=== PATIENT | female | born 1970 | race Caucasian/White ===

== ENCOUNTER 2016-11-09 20:07 | Emergency (ER) | payer OTHER ==
[~2016-11-09 20:07] MED LIST: BUPR300T3 PO; CLON0.2T PO; ESTR1PAT67 TD; NAPR500T PO; OXYC-323 PO; PROG200C7 PO
[2016-11-09 20:33] VITALS: BP 154/89
[2016-11-09] MEDS ORDERED: HYDROCODONE/APAP 5/325MG TABLET. PO ONE (21:45)
[2016-11-09] MEDS ORDERED: CYCLOBENZAPRINE 10 MG TABLET. PO ONE (21:45)
[2016-11-09] MEDS ORDERED: CYCL10TA2 PO (22:02)
[2016-11-09] MEDS ORDERED: HYDR-971 PO (22:02)
[2016-11-09] MEDS ORDERED: NAPR500T8 PO (22:02)
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
--- NOTE | 2016-11-10 08:24 | RAD ---
PA and lateral chest radiographs 11/09/2016 Clinical history: Chest pain. PA and lateral digital radiographs of the chest were obtained. Comparison study is dated 02/10/2016. The cardiac silhouette is borderline enlarged. The thoracic aorta is minimally tortuous. No acute pulmonary infiltrate is seen. No pleural effusion or pneumothorax is noted. Degenerative changes are seen involving the thoracic spine. Impression: No acute abnormality is seen.
== END 2016-11-09 22:07 | disposition home or self-care (01) ==
LOC: ER 20:07
DX: S80.01XA Contusion of right knee, initial encounter (principal); S20.211A Contusion of right front wall of thorax, initial encounter; S80.11XA Contusion of right lower leg, initial encounter; M25.511 Pain in right shoulder; M25.512 Pain in left shoulder; M25.531 Pain in right wrist; I10 Essential (primary) hypertension; V49.40XA Driver injured in collision with unspecified motor vehicles in traffic accident, initial encounter; Y93.I9 Activity, other involving external motion; Y92.410 Unspecified street and highway as the place of occurrence of the external cause; Y99.8 Other external cause status
CPT/HCPCS: 71020; 99284-25

== ENCOUNTER → 2016-12-26 | Outpatient (CLI) | payer OTHER ==
[~2016-12-26] MED LIST changes: +CYCL10TA2 PO; +HYDR-971 PO; +NAPR500T8 PO
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
== END | disposition home or self-care (01) ==
LOC: RAD 14:49
PROVIDERS: ATTEND Family Medicine
DX: M25.762 Osteophyte, left knee (principal)
CPT/HCPCS: 73562

== ENCOUNTER 2017-03-03 11:04 | Emergency (ER) | payer OTHER ==
[~2017-03-03] VITALS: Ht 167.6 cm; Wt 133.8 kg
[~2017-03-03 11:04] MED LIST changes: +PROG200C15 PO; -PROG200C7 PO
[2017-03-03 11:13] VITALS: BP 139/85
[2017-03-03] MEDS ORDERED: AMOX500C PO (11:46)
--- NOTE | 2017-03-03 11:47 | PHYS DOC ---
Past Medical History Past Medical History: Hypertension Past Surgical History: Hysterectomy, Tubal ligation Alcohol Use: None Drug Use: None Adult General Chief Complaint Chief Complaint: COUGH HPI HPI Patient is a 46 year old female presents to the emergency department stating that she has had a cough congestion for the last 5 days. Patient also states that she's had a sore throat in which she has lost her voice yesterday. Patient states that she has tried warm teas with minimal relief. She denies recent fevers however she did state she had a fever that are broken in at the beginning of the symptoms. Patient denies any nausea vomiting. Patient states that she has coughed up some little yellow secretions. Patient also states that she has been exposed to strep. Review of Systems Review of Systems Constitutional: Denies fever or chills [] Eyes: Denies change in visual acuity, redness, or eye pain [] HENT: Denies nasal congestion complaint sore throat [] Respiratory: cough denies shortness of breath [] Cardiovascular: No additional information not addressed in HPI [] GI: Denies abdominal pain, nausea, vomiting, bloody stools or diarrhea [] : Denies dysuria or hematuria [] Musculoskeletal: Denies back pain or joint pain [] Integument: Denies rash or skin lesions [] Neurologic: Denies headache, focal weakness or sensory changes [] Endocrine: Denies polyuria or polydipsia [] Allergies Allergies Allergies Coded Allergies Type Severity Reaction Last Updated Verified No Known Drug Allergies 02/08/16 No Physical Exam Physical Exam Constitutional: Well developed, well nourished, no acute distress, non-toxic appearance. [] HENT: Normocephalic, atraumatic, bilateral external ears normal, oropharynx moist, no oral exudates, nose normal. Bilateral tympanic membranes appear to be normal. Throat with no redness no erythematous no exudate noted. Eyes: PERRLA, EOMI, conjunctiva normal, no discharge. [] Neck: Normal range of motion, no tenderness, supple, no stridor. [] Cardiovascular:Heart rate regular rhythm, no murmur [] Lungs & Thorax: Bilateral breath sounds clear to auscultation [] Skin: Warm, dry, no erythema, no rash. [] Back: No tenderness Extremities: No tenderness, no cyanosis, no clubbing, ROM intact, no edema. [] Neurologic: Alert and oriented X 3, normal motor function, normal sensory function, no focal deficits noted. [] Psychologic: Affect normal, judgement normal, mood normal. [] Current Patient Data Vital Signs Vital Signs Date Time Temp Pulse Resp B/P (MAP) Pulse Ox O2 Delivery O2 Flow Rate FiO2 03/03/17 11:13 98.2 90 20 96 Room Air 98.2 EKG EKG [] Radiology/Procedures Radiology/Procedures [] Course & Med Decision Making Course & Med Decision Making Pertinent Labs and Imaging studies reviewed. (See chart for details) Rapid strep was negative. Patient will be placed on amoxicillin 500 mg twice day for the next 10 days. Recommended patient to drink plenty of fluids such as water Gatorade or propel. Recommended Tylenol or ibuprofen for fever chills or generalized body aches and discomfort. Patient will be discharged home in stable condition. Signs and symptoms to return back to emergency department as been provided. Patient had all of her questions answered at bedside. [] Dragon Disclaimer Dragon Disclaimer This electronic medical record was generated, in whole or in part, using a voice recognition dictation system. Departure Departure Impression: Primary Impression: URI (upper respiratory infection) Disposition: 01 HOME, SELF-CARE Condition: STABLE Referrals: AIDA GONZALEZ MD (PCP) Patient Instructions: Upper Respiratory Infection, Adult, [id number] Additional Instructions: Activity as tolerated. Medication as prescribed. Tylenol or ibuprofen for pain and discomfort. Drink plenty of fluids such as water Gatorade or propel. Follow-up to primary care physician in the next 3-5 days. Return back to emergency prior signs symptoms of become worse. Scripts Amoxicillin (AMOXICILLIN) 500 Mg Capsule 1 CAP PO BID, #20 CAP Prov: RAMESH IQBAL TILE AND MARBLE SETTER 03/03/17 RAMESH IQBAL TI[employer] AND MARBLE SETTER Mar 03, 2017 11:47
[2017-03-03 12:08] LABS: NEGATIVE OBC STREP NEG; POSITIVE OBC STREP POS
== END 2017-03-03 12:05 | disposition home or self-care (01) ==
LOC: ER 11:04
DX: J06.9 Acute upper respiratory infection, unspecified (principal); I10 Essential (primary) hypertension; Z90.710 Acquired absence of both cervix and uterus
CPT/HCPCS: 87070; 87880; 99283

== ENCOUNTER 2017-09-03 15:01 | Emergency (ER) | payer OTHER ==
[2017-09-03 16:51] LABS: BILIRUBIN,URINE SMALL (NEG); CLARITY,URINE CLEAR; COLOR,URINE AMBER; GLUCOSE,URINE NEGATIVE (NEG); NITRITE,URINE NEGATIVE (NEG); PH,URINE 5.5; PROTEIN,URINE 30 mg/dL (NEG-TRACE)
[2017-09-03 17:08] LABS: BACTERIA,URINE FEW /HPF (0-FEW); RBC,URINE 0 /HPF (0-2); SQUAMOUS EPITHELIAL CELL,UR MOD /LPF
[2017-09-03] MEDS: IV NORMAL SALINE 1000ML BAG 1,000 ML IV (17:14)
[2017-09-03] MEDS: ONDANSETRON PF 4 MG/2 ML VIAL. IV (17:14)
[2017-09-03] MEDS: fentaNYL PF VIAL 100 MCG/2 ML VIAL IV (17:14)
[2017-09-03] MEDS: PENICILLIN G BENZATHINE LA 1,200,000 UNIT/2 ML DISP.SYRIN. IM (17:15)
[2017-09-03 17:22] LABS: INFLUENZA A PATIENT NEGATIVE (NEGATIVE); INFLUENZA B PATIENT NEGATIVE (NEGATIVE); OBC FLU VALID
[2017-09-03 17:25] LABS: ANION GAP 10 (6-14); BLOOD UREA NITROGEN 13 mg/dL (7-20); BUN/CREATININE RATIO 22 (6-20); CALCIUM 8.7 mg/dL (8.5-10.1); CARBON DIOXIDE 27 mmol/L (21-32); CHLORIDE 99 mmol/L (98-107); CREATININE 0.6 mg/dL (0.6-1.0); GFR 106.3; GLUCOSE 116 mg/dL (70-99); POTASSIUM 3.4 mmol/L (3.5-5.1); SODIUM 136 mmol/L (136-145)
[2017-09-03 17:31] LABS: ALBUMIN 3.4 g/dL (3.4-5.0); ALBUMIN/GLOBULIN RATIO 0.6 (1.0-1.7); ALK PHOS 115 U/L (46-116); ALT (SGPT) 17 U/L (14-59); AST (SGOT) 23 U/L (15-37); TOTAL BILIRUBIN 0.7 mg/dL (0.2-1.0); TOTAL PROTEIN 8.7 g/dL (6.4-8.2)
[2017-09-03 17:35] LABS: ADD MAN DIFF? NO
[2017-09-03 17:36] LABS: TROPONINI < 0.017 ng/mL (0.000-0.055)
[2017-09-03 17:37] LABS: BASO % 0 % (0-3); EOS % 0 % (0-3); HEMATOCRIT 35.7 % (36.0-47.0); HEMOGLOBIN 11.8 g/dL (12.0-15.5); LYMPH # 2.3 x10^3/uL (1.0-4.8); LYMPH % 17 % (24-48); MEAN CORPUSCULAR HEMOGLOBIN 26 pg (25-35); MEAN CORPUSCULAR HGB CONC 33 g/dL (31-37); MEAN CORPUSCULAR VOLUME 80 fL (79-100); MONO # 0.8 x10^3/uL (0.0-1.1); MONO % 6 % (0-9); NEUT % 77 % (31-73); PLATELET COUNT 217 x10^3/uL (140-400); RED BLOOD COUNT 4.46 x10^6/uL (3.50-5.40); RED CELL DISTRIBUTION WIDTH 13.9 % (11.5-14.5); WHITE BLOOD COUNT 13.1 x10^3/uL (4.0-11.0)
[2017-09-03 17:54] LABS: CKMB MASS < 0.5 ng/mL (0.0-3.6); CREATINE KINASE 76 U/L (26-192)
[2017-09-04 06:39] LABS: NEGATIVE OBC STREP NEG; POSITIVE OBC STREP POS
== END 2017-09-03 15:35 | disposition home or self-care (01) ==
LOC: ER 15:01
DX: J02.0 Streptococcal pharyngitis (principal); I10 Essential (primary) hypertension; F32.9 Major depressive disorder, single episode, unspecified
CPT/HCPCS: 36415; 71045; 80053; 81001; 82553; 84484; 85025; 87804; 87804-59; 87880; 96361; 96372; 96374; 96375; 99285-25; J0561; J2405; J3010; J7030

== ENCOUNTER 2018-11-02 13:07 | Emergency (ER) | payer OTHER ==
[~2018-11-02] VITALS: Ht 167.6 cm; Wt 131.1 kg
[~2018-11-02 13:07] MED LIST changes: +AMOX500C PO; +HYDR-3164 PO; -HYDR-971 PO; +IBUP-1007 PO; +NAPR-683 PO; -NAPR500T PO; -OXYC-323 PO; +OXYC1TAB15 PO
[2018-11-02 13:15] VITALS: BP 166/84
--- NOTE | 2018-11-02 13:29 | PHYS DOC ---
Past Medical History Past Medical History: Depression, Hypertension Past Surgical History: Hysterectomy, Tubal ligation Alcohol Use: None Drug Use: None Adult General Chief Complaint Chief Complaint: PAIN ON URINATION HPI HPI Patient is a 48 year old female who presents with feeling of urinary frequency. Patient states she passed a kidney stone spontaneously 5 days ago and started to have urinary frequency for the last 5 days without abdominal pain , nausea vomiting, dysuria, fever and chills. Patient states she had hematuria since this morning. Review of Systems Review of Systems Constitutional: Denies fever or chills [] Eyes: Denies change in visual acuity, redness, or eye pain [] HENT: Denies nasal congestion or sore throat [] Respiratory: Denies cough or shortness of breath [] Cardiovascular: No additional information not addressed in HPI [] GI: Denies abdominal pain, nausea, vomiting, bloody stools or diarrhea [] : Reports frequency and hematuria [] Musculoskeletal: Denies back pain or joint pain [] Integument: Denies rash or skin lesions [] Neurologic: Denies headache, focal weakness or sensory changes [] Endocrine: Denies polyuria or polydipsia [] All other systems were reviewed and found to be within normal limits, except as documented in this note. Current Medications Current Medications Current Medications Medications (Trade) Dose Ordered Sig/Andreea Start Time Stop Time Status Last Admin Dose Admin Ceftriaxone Sodium (Rocephin Im) 1 gm 1X ONCE 11/02/18 14:30 11/02/18 14:31 DC 11/02/18 14:30 1 GM Allergies Allergies Allergies Coded Allergies Type Severity Reaction Last Updated Verified No Known Drug Allergies 02/08/16 No Physical Exam Physical Exam Constitutional: Well developed, well nourished, mild distress, non-toxic appearance. [] HENT: Normocephalic, atraumatic. Eyes: PERRLA, EOMI, conjunctiva normal, no discharge. [] Neck: Normal range of motion, no tenderness, supple, no stridor. [] Cardiovascular:Heart rate regular rhythm, no murmur [] Lungs & Thorax: Bilateral breath sounds clear to auscultation [] Abdomen: Bowel sounds normal, soft, no tenderness, no masses, no pulsatile masses. [] Skin: Warm, dry, no erythema, no rash. [] Back: No tenderness, no CVA tenderness. [] Extremities: No tenderness, no cyanosis, no clubbing, ROM intact, no edema. [] Neurologic: Alert and oriented X 3, normal motor function, normal sensory function, no focal deficits noted. [] Psychologic: Affect normal, judgement normal, mood normal. [] Current Patient Data Vital Signs Vital Signs Date Time Temp Pulse Resp B/P (MAP) Pulse Ox O2 Delivery O2 Flow Rate FiO2 11/02/18 13:15 97.8 79 18 166/84 (111) 96 Room Air 97.8 Lab Values Laboratory Tests Test 11/02/18 13:16 Urine Collection Type Unknown Urine Color Yellow Urine Clarity Cloudy Urine pH 5.5 Urine Specific [place] 1.015 Urine Protein 100 mg/dL (NEG-TRACE) Urine Glucose (UA) Negative mg/dL (NEG) Urine Ketones (Stick) Negative mg/dL (NEG) Urine Blood Large (NEG) Urine Nitrite Positive (NEG) Urine Bilirubin Negative (NEG) Urine Urobilinogen Dipstick 0.2 mg/dL (0.2 mg/dL) Urine Leukocyte Esterase Large (NEG) Urine RBC Tntc /HPF (0-2) Urine WBC Tntc /HPF (0-4) Urine Bacteria 0 /HPF (0-FEW) EKG EKG [] Radiology/Procedures Radiology/Procedures [] Course & Med Decision Making Course & Med Decision Making Pertinent Labs reviewed. (See chart for details) Evaluation of patient in ER showed 48-year-old female patient with history of recent passing kidney stone presented with urinary frequency. Patient had unremarkable exam. UA showed too numerous to count WBC and RBC and positive nitrate. Patient agreed to have IM Rocephin in ER and prescription for Cipro was given. Patient did not have pain at arrival to ER and at time of discharge. Dragon Disclaimer Dragon Disclaimer This electronic medical record was generated, in whole or in part, using a voice recognition dictation system. Departure Departure Impression: Primary Impression: Acute hemorrhagic cystitis Disposition: 01 HOME, SELF-CARE (@1430) Condition: STABLE Referrals: AIDA GONZALEZ MD (PCP) Patient Instructions: Urinary Tract Infection Additional Instructions: Drink plenty of liquids Follow-up with your primary care physician in 3-5 days Return to ER if not getting better Scripts Ciprofloxacin Hcl (CIPRO) 250 Mg Tablet 1 TAB PO BID for infection, #14 TAB Prov: GALEN GARDNER MD 11/02/18 GALEN GARDNER MD Nov 02, 2018 13:29
[2018-11-02 13:39] LABS: BILIRUBIN,URINE NEGATIVE (NEG); CLARITY,URINE CLOUDY; COLOR,URINE YELLOW; NITRITE,URINE POSITIVE (NEG); PH,URINE 5.5; PROTEIN,URINE 100 mg/dL (NEG-TRACE); UROBILINOGEN,URINE 0.2 mg/dL (0.2 mg/dL)
[2018-11-02 13:52] LABS: BACTERIA,URINE 0 /HPF (0-FEW); RBC,URINE TNTC /HPF (0-2); WBC,URINE TNTC /HPF (0-4)
[2018-11-02] MEDS ORDERED: CIPR250T30 PO (14:22)
[2018-11-02] MEDS ORDERED: cefTRIAXone IM 1 GM VIAL IM ONE (14:30)
== END 2018-11-02 14:30 | disposition home or self-care (01) ==
LOC: ER 13:07
DX: N30.01 Acute cystitis with hematuria (principal); I10 Essential (primary) hypertension; F32.9 Major depressive disorder, single episode, unspecified; Z90.710 Acquired absence of both cervix and uterus; Z98.51 Tubal ligation status
CPT/HCPCS: 81001; 87086; 96372; 99284; J0696; 87186

== ENCOUNTER → 2019-04-27 | Outpatient (CLI) | payer OTHER ==
[~2019-04-27] MED LIST changes: +CIPR250T30 PO
[2019-04-27 13:38] LABS: BASO # 0.1 x10^3/uL (0.0-0.2); BASO % 1 % (0-3); EOS # 0.2 x10^3/uL (0.0-0.7); EOS % 2 % (0-3); HEMATOCRIT 38.3 % (36.0-47.0); HEMOGLOBIN 12.9 g/dL (12.0-15.5); LYMPH % 35 % (24-48); MEAN CORPUSCULAR HEMOGLOBIN 27 pg (25-35); MEAN CORPUSCULAR HGB CONC 34 g/dL (31-37); MEAN CORPUSCULAR VOLUME 81 fL (79-100); MONO # 0.4 x10^3/uL (0.0-1.1); MONO % 4 % (0-9); NEUT % 58 % (31-73); PLATELET COUNT 285 x10^3/uL (140-400); RED BLOOD COUNT 4.71 x10^6/uL (3.50-5.40); RED CELL DISTRIBUTION WIDTH 13.8 % (11.5-14.5); WHITE BLOOD COUNT 8.6 x10^3/uL (4.0-11.0)
[2019-04-27 14:09] LABS: ALBUMIN 3.5 g/dL (3.4-5.0); ALBUMIN/GLOBULIN RATIO 0.7 (1.0-1.7); CALCIUM 8.9 mg/dL (8.5-10.1); CREATININE 0.7 mg/dL (0.6-1.0); GFR 88.2; POTASSIUM 4.3 mmol/L (3.5-5.1); TOTAL BILIRUBIN 0.3 mg/dL (0.2-1.0); TOTAL PROTEIN 8.4 g/dL (6.4-8.2)
[2019-04-27 14:15] LABS: CHOLESTEROL/HDL RATIO 4.2
== END | disposition home or self-care (01) ==
LOC: LAB 13:14
PROVIDERS: ATTEND Family Medicine
DX: Z13.220 Encounter for screening for lipoid disorders (principal); I10 Essential (primary) hypertension; R07.9 Chest pain, unspecified
CPT/HCPCS: 36415; 80053; 80061; 84443; 85025

== ENCOUNTER → 2019-05-11 | Outpatient (CLI) | payer OTHER ==
--- NOTE | 2019-05-11 06:36 | RAD ---
Indication:Abdominal pain. TECHNIQUE: Grayscale, color Doppler and spectral waveform is of the abdomen obtained. COMPARISON:None FINDINGS: Pancreas within normal limits. Patent IVC. No aortic aneurysm. Liver is mildly enlarged measuring 19 cm in longest dimension with diffuse increased echogenicity and decreased through transmission. Main portal vein is patent. Gallstones noted. No pericholecystic fluid or gallbladder wall thickening. CBD measures 6 mm in diameter and is mildly dilated. Right kidney measures 13.5 cm in length without hydronephrosis. Spleen is mildly enlarged measuring 14 cm in longest dimension. Left kidney measures 12.8 cm in length without hydronephrosis. IMPRESSION: 1. Mild hepatosplenomegaly with hepatic steatosis. 2. Cholelithiasis without imaging evidence of acute cholecystitis. If concern for acute cholecystitis persists further evaluation with HIDA scan recommended. 3. Minimally dilated CBD. If there is concern for choledocholithiasis further evaluation with MRCP recommended. Electronically signed by: Rodolfo Foss DO (05/11/2019 6:33 AM) [facility]
--- NOTE | 2019-05-11 13:24 | RAD ---
DATE: 05/11/2019. EXAM: MAMMO BA SCREENING BILATERAL. HISTORY: Routine mammographic screening. COMPARISON: 01/02/2016. This study was interpreted with the benefit of Computerized Aided Detection (CAD). FINDINGS: Breast Density: SCATTERED The breast parenchyma shows scattered fibroglandular densities. Breast parenchyma level B.. Circumscribed nodules bilaterally are stable and benign. Scattered calcifications are stable. There are no suspicious masses, microcalcifications or architectural distortion. BI-RADS CATEGORY: 2 BENIGN FINDING(S). RECOMMENDED FOLLOW-UP: 12M 12 MONTH FOLLOW-UP. PQRS compliance statement: Patient information was entered into a reminder system with a target due date 05/11/2020 for the next mammogram. Mammography is a sensitive method for finding small breast cancers, but it does not detect them all and is not a substitute for careful clinical examination. A negative mammogram does not negate a clinically suspicious finding and should not result in delay in biopsying a clinically suspicious abnormality. "Our facility is accredited by the [employer] Mammography Program."
== END | disposition home or self-care (01) ==
LOC: US 05:57
PROVIDERS: ATTEND Family Medicine
DX: Z12.31 Encounter for screening mammogram for malignant neoplasm of breast (principal); N63.10 Unspecified lump in the right breast, unspecified quadrant; N63.20 Unspecified lump in the left breast, unspecified quadrant; K76.0 Fatty (change of) liver, not elsewhere classified; K80.20 Calculus of gallbladder without cholecystitis without obstruction; R16.2 Hepatomegaly with splenomegaly, not elsewhere classified
CPT/HCPCS: 76700; 77063; 77067

== ENCOUNTER → 2019-05-18 | Outpatient (CLI) | payer OTHER ==
--- NOTE | 2019-05-19 12:00 | RAD ---
MR#: [id number] Date of Study: 05/19/2019 Ordering Physician: THAI PIZARRO Referring Physician: HAMILTON LUCAS Tech: RT Belen (R) (N) APPROVED REPORT Test Type: Pharmacological Stress Nurse/Tech: Adriana Archer RN Test Indications: chest pain, SOB, palpitations Cardiac History: HTN,, See Electronic Medical Record Medications: See Electronic Medical Record Medical History: See Electronic Medical Record Resting ECG: SR Resting Heart Rate: 77 bpm Resting Blood Pressure: 133/63mmHg Pretest Chest Pain: No chest pain Nurse/Tech Notes S1S2, lungs CTA, pt denied CP or SOB at this time. Consent: The procedure was explained to the patient in lay terms. Informed consent was witnessed. Malik eout was entered into [employer]. History and Stress Test performed by SAJAN Almanzar Pharm. Details Pharmacologic stress testing was performed using 0.4mg per 5ml of regadenoson given intravenously ove r 7-10 seconds. Stress Symptoms Pt tolerated the procedure well, only complaint was of a "funny feeling", which subsided within a cou ple minutes. Denied actual chest pain or SOB. POST EXERCISE Reason for Termination: Infusion complete Max HR: 105 bpm Max Blood Pressure: 133/57mmHg Blood Pressure response to exercise: Normal blood pressure response during stress. Heart Rate response to exercise: Normal HR response during stress Chest Pain: No. Arrhythmia: No. ST Change: No. INTERPRETATION Stress EKG Conclusion: Baseline EKG showed sinus rhythm. No ischemic changes at peak stress. No arr hythmias. Imaging Protocol IMAGE PROTOCOL: Rest Tc-99m/stress Tc-99m 2 days Rest: Stress: Viability: Radiopharm.Tc99m [id number] Sestamibi Dose36.5mCi 33mCi Duration 15min. 15min. Img Date 05/18/2019 05/19/2019 Inj-Img [id number]. 60min. Rest Admin Site:IV - Right AntecubitalAdministrator:RODNEY Perry)(N) Stress Admin Site: IV - Right AntecubitalAdministrator: Lorenza Wick, RT (R)(N) STRESS DATA End Diast. Vol.133.0mlLVEDV index BSA56.0ml End Syst. Vol.41.0mlLVESV index BSA17.0ml Myocardial Vreb216.0gEject. Xxuqmcun58.0% Stress Scores Regional WT0.00Summed WT1.00 Regional WM0.00Summed WM0.00 Study quality was good. Left Ventricular size was Normal at Rest and Stress. Lung uptake was . Left Ventricular ejection fraction is 69%. The rest and stress images show normal perfusion, normal contraction and thickening. LV Perf. Quant 17 Seg. SSS17.00 17 Seg. SRS0.00 17 Seg. SDS17.00 Stress Defect Extent (% LAD)31.90Rest Defect Extent (% LAD)0.00Rev. Defect Extent (% LAD)31.90 Stress Defect Extent (% LCX) 80.00Rest Defect Extent (% LCX)0.00Rev. Defect Extent (% LCX)80.00 Stress Defect Extent (% RCA)0.00Rest Defect Extent (% RCA)0.00Rev. Defect Extent (% RCA)0.00 Stress Defect Extent (% LLUVIA)32.40Rest Defect Extent (% LLUVIA)0.00Rev. Defect Extent (% LLUVIA)32.40 Conclusion 1. Regadenoson cardioisotope stress test did not show any evidence of ischemia or infarct. 2. Normal left ventricular systolic function with ejection fraction calculated at 69%. 3. Low risk for cardiac events. Signed by : Thai Pizarro, Electronically Approved : 05/19/2019 11:59:51
== END | disposition home or self-care (01) ==
LOC: NM 08:22
PROVIDERS: ATTEND Internal Medicine Cardiovascular Disease
DX: R06.02 Shortness of breath (principal); R07.9 Chest pain, unspecified; R00.2 Palpitations; I10 Essential (primary) hypertension
CPT/HCPCS: 78452; A9500

== ENCOUNTER → 2019-05-19 | Outpatient (CLI) | payer OTHER ==
[~2019-05-19] MED LIST changes: +CLON1PAT TD; +OXYC-325 PO; +REGADENOSON 0.4 MG/5 ML DISP.SYRIN. IV ONE
--- NOTE | 2019-05-19 11:03 | CARD ---
MR#: [id number] Date of Study: 05/19/2019 Ordering Physician: THAI DELUCA, Referring Physician: Anjel LUCAS: Madelin Zavala APPROVED REPORT EXAM: Two-dimensional and M-mode echocardiogram with Doppler and color Doppler. Other Information Quality : AverageHR: 75bpm INDICATION Chest Pain 2D DIMENSIONS RVDd3.3 (2.9-3.5cm)Left Atrium(2D)4.6 (1.6-4.0cm) IVSd1.3 (0.7-1.1cm)Aortic Root(2D)2.4 (2.0-3.7cm) LVDd5.0 (3.9-5.9cm)LVOT Diameter2.0 (1.8-2.4cm) PWd0.9 (0.7-1.1cm)LVDs2.9 (2.5-4.0cm) FS (%) 41.1 %SV83.8 ml LVEF(%)71.7 (>50%) Aortic Valve AoV Peak Lance.113.8cm/sAoV VTI21.4cm AO Peak GR.5.2mmHgLVOT Peak Lance.86.7cm/s AO Mean GR.3mmHgAVA (VMAX)2.48cm2 Mitral Valve MV E Ibvxkryo38.2cm/sMV E Peak Gr.3mmHg MV DECEL [id number] A Riudjhne12.5cm/s MV E Mean Gr.1mmHgE/A Ratio0.6 Pulmonary Valve PV Peak Sbyulumx61.3cm/s Tricuspid Valve RAP [id number] Pulmonary Vein S1 Qolgedbi77.9cm/sD2 Wfdwndsx01.7cm/s LEFT VENTRICLE The left ventricle is normal size. Mild septal LVH The left ventricular systolic function is normal. The Ejection Fraction is 60-65%. There is normal LV segmental wall motion. Transmitral Doppler flow p attern is Grade I-abnormal relaxation pattern. RIGHT VENTRICLE The right ventricle is normal size. There is normal right ventricular wall thickness. The right ventr icular systolic function is normal. ATRIA The left atrium is mildly dilated. The right atrium size is normal. The interatrial septum is intact with no evidence for an atrial septal defect or patent foramen ovale as noted on 2-D or Doppler imagi ng. AORTIC VALVE The aortic valve is normal in structure and function. Doppler and Color Flow revealed no significant aortic regurgitation. There is no significant aortic valvular stenosis. MITRAL VALVE The mitral valve is normal in structure and function. There is no evidence of mitral valve prolapse. There is no mitral valve stenosis. Doppler and Color-flow revealed trace mitral regurgitation. TRICUSPID VALVE The tricuspid valve is normal in structure and function. Doppler and Color Flow revealed trace tricus pid regurgitation. There is no tricuspid valve stenosis. PULMONIC VALVE The pulmonic valve is not well visualized. Doppler and Color Flow revealed no pulmonic valvular regur gitation. GREAT VESSELS The aortic root is normal in size. The ascending aorta is normal in size. The IVC is normal in size a nd collapses >50% with inspiration. PERICARDIAL EFFUSION There is no pleural effusion. There is no evidence of significant pericardial effusion. Critical Notification Critical Value: No <Conclusion> The left ventricular systolic function is normal. The Ejection Fraction is 60-65%. There is normal LV segmental wall motion. Transmitral Doppler flow pattern is Grade I-abnormal relaxation pattern. Trace mitral regurgitation. Trace tricuspid regurgitation. There is no evidence of significant pericardial effusion. Signed by : Thai Deluca, Electronically Approved : 05/19/2019 11:03:12
== END | disposition home or self-care (01) ==
LOC: ECHO 08:45
PROVIDERS: ATTEND Internal Medicine Cardiovascular Disease
DX: I10 Essential (primary) hypertension (principal); R07.9 Chest pain, unspecified
CPT/HCPCS: 93017; 93306; 96376; J2785

== ENCOUNTER 2019-06-05 08:24 | Day surgery (SDC) | payer OTHER ==
[~2019-06-05] VITALS: Ht 165.1 cm; Wt 139.7 kg
[~2019-06-05 08:24] MED LIST changes: +BUPIVACAINE-EPI 0.25%-1:200000 MPF 30 ML VIAL. INJ ONE; +HYDROmorphone 2 MG/ML VIAL IV PRN; +IOHEXOL 300 MG/ML 50 ML VIAL. ONE; +IV RINGERS,LACTATED 1000ML 1,000 ML IV SCH; +MORPHINE SULFATE 2 MG/ML VIAL. IV PRN; -OXYC-325 PO; +PROCHLORPERAZINE 10 MG/2 ML VIAL. IV PRN; -REGADENOSON 0.4 MG/5 ML DISP.SYRIN. IV ONE; +SURGICEL HEMOSTAT 4X8 EACH. ONE; +ceFAZolin SODIUM 3 GM in IV DEXTROSE 5% 100ML 100 ML IV PRN; +fentaNYL PF VIAL 100 MCG/2 ML VIAL IV PRN
[2019-06-05] MEDS ORDERED: ACETAMINOPHEN 500 MG TABLET PO ONE (09:00)
[2019-06-05] MEDS ORDERED: ROCURONIUM 50 MG/5 ML VIAL. ONE (09:03)
[2019-06-05] MEDS ORDERED: fentaNYL PF VIAL 250 MCG/5 ML VIAL ONE (09:04)
[2019-06-05] MEDS ORDERED: MIDAZOLAM HCL/PF 2 MG/2 ML VIAL. ONE (09:04)
[2019-06-05] MEDS ORDERED: PROPOFOL 20 ML IV ONE (10:03)
[2019-06-05] MEDS ORDERED: SEVOFLURANE 61 TO 120 MINUTES. IH ONE (10:03)
[2019-06-05] MEDS ORDERED: LIDOCAINE 2% PF 5 ML VIAL. ONE (10:03)
[2019-06-05] MEDS ORDERED: ONDANSETRON PF 4 MG/2 ML VIAL. ONE (10:04)
[2019-06-05] MEDS ORDERED: DEXAMETHASONE SOD PHOS 4 MG/ML VIAL ONE (10:04)
--- NOTE | 2019-06-05 10:05 | PDOC4 ---
Operative Note Operative Note Date: 06/05/2019 Preoperative diagnosis: Chronic cholecystitis with cholelithiasis Postoperative diagnosis: Same Procedure: Laparoscopic cholecystectomy Surgeon: Josemanuel Specimen: Gallbladder Dictation: Patient is a 49-year-old female is had right upper quadrant abdominal pain for several months ultrasound showing gallstones within the gallbladder. The procedure of laparoscopic cholecystectomy was explained to the patient detail risk benefits were also discussed including bleeding infection injury to intra-abdominal contents possibly necessitating further or open operations alternatives to this procedure also discussed with the patient is seemed to understand gave both verbal and written consent had the procedure performed. Patient was taken to the operating room placed supine position general anesthesia was initiated once patient was sleep and intubated her abdomen was prepped and draped usual sterile fashion using ChloraPrep and area just above th e umbilicus was injected with quarter percent Marcaine with epinephrine incision was made with 11 blade scalpel and a Veress needle was placed within the abdomen creating pneumoperitoneum once this complete 11 mm port was placed and 5 mill meter camera was placed within the abdomen which was inspected was noted that the gallbladder had some couple large stones. 5 mm port was placed in the epigastrium one in the right mid abdomen and one in the right lateral abdomen the dome of the gallbladder is grasped retracted cephalad the infundibulum of the gallbladder is grasped retracted laterally exposing the triangle adherent tissues of the triangle were taken down with blunt dissection exposing the cystic duct and cystic artery both were doubly clipped and transected the gallbladder was taken off the liver with a clot cautery placed in Endo Catch bag and removed from the umbilicus. Right upper quadrant was irrigated and suctioned dry hemostasis deemed appropriate and the pneumoperitoneum was reduced all ports removed fascial defect at the umbilicus closed [id number] 0 Vicryl suture and the skin was approximate all port sites with for septic and a Monocryl Mastisol Steri-Strips and island dressings were applied. Patient was awakened expend an operating room taken to recovery in stable condition all sponge instrument needle counts listed as correct S medical blood loss 5 mL NA SHANKS MD Jun 05, 2019 10:05
[2019-06-05] MEDS ORDERED: NEOSTIGMINE METHYLSULFATE 5 MG/5 ML SYRINGE. ONE (10:07)
[2019-06-05] MEDS ORDERED: GLYCOPYRROLATE 1 MG/5 ML VIAL. ONE (10:07)
--- NOTE | 2019-06-05 10:08 | DISCH ---
DISCHARGE INSTRUCTIONS Condition on Discharge Condition on Discharge: Stable Activity After Discharge Activity Instructions for Disc: Avoid exertion Other activity instructions: no lifting more than 20 pounds for 2 weeks Lifting Instructions after Dis: No heavy lifting Diet after Discharge Diet after Discharge: Low Fat Contacting the after DC Call your doctor for: If your condition worsens Follow-Up Follow up with: Dr. Shanks in 2 weeks NA SHANKS MD Jun 05, 2019 10:08
[2019-06-05] MEDS ORDERED: oxyCODONE/APAP 5/325 1 TAB TABLET PO ONE ×2 (10:30→11:15)
[2019-06-05] MEDS ORDERED: fentaNYL PF VIAL 100 MCG/2 ML VIAL ONE ×2 (10:43→12:15)
[2019-06-05] MEDS: fentaNYL PF VIAL 100 MCG/2 ML VIAL IV PRN ×3 (10:51→12:23)
[2019-06-05] MEDS ORDERED: OXYC-325 PO (12:13)
[2019-06-05] MEDS ORDERED: PROCHLORPERAZINE 10 MG/2 ML VIAL. ONE (12:15)
[2019-06-05 12:25] VITALS: BP 134/65
--- NOTE | 2019-06-08 14:07 | PATHOLOGY ---
[facility] Accession Number: [id number] . 01 Material submitted: . gallbladder - GALLBLADDER AND CONTENTS . 01 Clinical history: . Cholecystitis . 02 Diagnosis: Gallbladder, cholecystectomy: - Cholelithiasis. - Chronic cholecystitis. . ([facility]; 06/08/2019) [facility] 06/08/2019 1023 Local . 02 Comment: There is no evidence of malignancy. . (JP:mm; 06/08/2019) . 02 Electronically signed: . Khari Law MD, Pathologist NPI- [id number] . 01 Gross description: . The specimen is received in formalin, labeled "Sofy, Debra, gallbladder and contents", is intact, distended gallbladder measuring 7.0 cm in length and 2.2 cm in maximum diameter with a smooth, glistening and bunch-yellow serosa. The cystic duct is patent. The gallbladder lumen contains minimal bile and three green-yellow multifaceted calculi measuring 3.5 x 2.2 x 1.2 cm in aggregate. The mucosa is focally effaced and hyperemic and with no recognizable cholesterolosis. The wall is fibrous and up to 0.1 cm in average thickness. Representatively submitted in A1. ([facility]; 06/05/2019) [facility] 06/05/2019 1854 Local . 02 Pathologist provided ICD-10: K80.10 . 02 CPT . 704187 Specimen Comment: A courtesy copy of this report has been sent to [phone], [phone] Specimen Comment: [id number] Specimen Comment: Report sent to / DR GONZALEZ Performed at: 01 [facility] [address] [facility] [address] [place] [id number] MD Sai Rico MD Phone: [phone] Performed at: [address] [id number] MD Khari Law MD Phone: [phone]
== END 2019-06-05 12:36 | disposition home or self-care (01) ==
LOC: SURG 08:24
PROVIDERS: ATTEND Surgery
DX: K80.10 Calculus of gallbladder with chronic cholecystitis without obstruction (principal); I10 Essential (primary) hypertension; K21.9 Gastro-esophageal reflux disease without esophagitis; E66.01 Morbid (severe) obesity due to excess calories; Z68.43 Body mass index [BMI] 50.0-59.9, adult
CPT/HCPCS: 47562; 88304; A7015; J0780; J1100; J2001; J2250; J2405; J2704; J2710; J3010; J3490; J7030; Q9967

== ENCOUNTER 2020-03-03 11:39 | Emergency (ER) | payer OTHER ==
[~2020-03-03] VITALS: Ht 167.6 cm; Wt 115.0 kg
[~2020-03-03 11:39] MED LIST changes: -BUPIVACAINE-EPI 0.25%-1:200000 MPF 30 ML VIAL. INJ ONE; -HYDROmorphone 2 MG/ML VIAL IV PRN; -IOHEXOL 300 MG/ML 50 ML VIAL. ONE; -IV RINGERS,LACTATED 1000ML 1,000 ML IV SCH; -MORPHINE SULFATE 2 MG/ML VIAL. IV PRN; +OXYC-325 PO; -PROCHLORPERAZINE 10 MG/2 ML VIAL. IV PRN; -SURGICEL HEMOSTAT 4X8 EACH. ONE; -ceFAZolin SODIUM 3 GM in IV DEXTROSE 5% 100ML 100 ML IV PRN; -fentaNYL PF VIAL 100 MCG/2 ML VIAL IV PRN
[2020-03-03 11:45] VITALS: BP 149/90
--- NOTE | 2020-03-03 12:31 | RAD ---
Right foot 3 views. HISTORY: Pain after lifting battery fell on foot. 3 views were taken of the right foot. There is not evidence of an acute fracture or osseous abnormality. IMPRESSION: 1. No fracture or acute osseous abnormality noted in the right foot. Electronically signed by: Gunnar Ravi MD (03/03/2020 12:28 PM) [id number]
--- NOTE | 2020-03-03 12:36 | PHYS DOC ---
Past Medical History Past Medical History: Depression, Hypertension Past Surgical History: Cholecystectomy, Hysterectomy, Tubal ligation Smoking Status: Never Smoker Alcohol Use: None Drug Use: None General Adult EDM: Chief Complaint: FOOT INJURY PAIN HPI: HPI: Patient is a 49 year old female who presents to the ED today complaining of 7 out of 10 sharp constant right foot pain that began on February 21, 2020 after a Ese battery pack fell on her foot at work. Patient reports the pain is worse on weightbearing. Denies anything specifically relieving the pain. Review of Systems: Review of Systems: Constitutional: Denies fever or chills. [] Musculoskeletal: Reports right foot pain Integument: Denies rash. [] Neurologic: Denies headache, focal weakness or sensory changes. [] Psychiatric: Denies depression or anxiety. [] Heart Score: Risk Factors: Risk Factors: DM, Current or recent (<one month) smoker, HTN, HLP, family history of CAD, obesity. Risk Scores: Score 0 - 3: 2.5% MACE over next 6 weeks - Discharge Home Score 4 - 6: 20.3% MACE over next 6 weeks - Admit for Clinical Observation Score 7 - 10: 72.7% MACE over next 6 weeks - Early Invasive Strategies Allergies: Allergies: Allergies Coded Allergies Type Severity Reaction Last Updated Verified No Known Drug Allergies 06/05/19 No Physical Exam: PE: Constitutional: Well developed, well nourished, no acute distress, non-toxic appearance. [] Skin: Warm, dry, no erythema, no rash. [] Back: No tenderness, no CVA tenderness. [] Extremities: Right foot has no obvious deformity. Slight edema noted on the right foot diffusely. Tenderness on palpation of the right ventral foot on the distal metatarsals. Limited range of motion to the right foot due to pain. No navicular bone tenderness, no tenderness on the base of the fifth metatarsal. +2 right pedal pulse. Cap refill less than 2 seconds the right toes. Neurologic: Alert and oriented X 3, normal motor function, normal sensory function, no focal deficits noted. [] Psychologic: Affect normal, judgement normal, mood normal. [] Current Patient Data: Vital Signs: Vital Signs Date Time Temp Pulse Resp B/P (MAP) Pulse Ox O2 Delivery O2 Flow Rate FiO2 03/03/20 11:45 98.1 71 18 149/90 (109) 100 Room Air 98.1 EKG: EKG: [] Radiology/Procedures: Radiology/Procedures: []PROCEDURE: FOOT RIGHT 3V Right foot 3 views. HISTORY: Pain after lifting battery fell on foot. 3 views were taken of the right foot. There is not evidence of an acute fracture or osseous abnormality. IMPRESSION: 1. No fracture or acute osseous abnormality noted in the right foot. Electronically signed by: Gunnar Ravi MD (03/03/2020 12:28 PM) [id number] DICTATED and SIGNED BY: GUNNAR RAVI MD DATE: 03/03/20 1228 Course & Med Decision Making: Course & Med Decision Making Pertinent Labs and Imaging studies reviewed. (See chart for details) This is a 49-year-old female patient presenting to the ED today complaining of right foot pain that began on February 21, 2020 after a battery pack off a fire lift fell on her foot. Right foot x-rays interpreted by radiologist are negative for any acute findings. Orthopedic shoe provided for the right foot applied by the ED RN, neurovascular exam is intact. Ice elevation encouraged. OTC pain relievers recommended. Provided orthopedic doctor for follow-up. Dragon Disclaimer: Dragon Disclaimer: This electronic medical record was generated, in whole or in part, using a voice recognition dictation system. Departure Departure Impression: Primary Impression: Contusion of right foot Qualified Codes: S90.31XA - Contusion of right foot, initial encounter Disposition: HOME, SELF-CARE Condition: STABLE Referrals: AIDA GONZALEZ MD (PCP) RISSA LAYTON MD Follow-up in the next 7 days Patient Instructions: Foot Contusion, [id number] Additional Instructions: You were seen for right foot pain, your right foot x-rays were negative for any acute findings. We provided you an orthopedic shoe. Wear it as tolerated. Follow-up with the provided orthopedic doctor in the next 7 days. Try to ice and elevate the extremity. You can take [id number] pain relievers as needed for pain. Justicifation of Admission Dx: Justifications for Admission: Justification of Admission Dx: N/A BHARTI CUI APRN Mar 03, 2020 12:36
== END 2020-03-03 13:04 | disposition home or self-care (01) ==
LOC: ER 11:39
DX: S90.31XA Contusion of right foot, initial encounter (principal); R60.0 Localized edema; I10 Essential (primary) hypertension; F32.9 Major depressive disorder, single episode, unspecified; Z90.710 Acquired absence of both cervix and uterus; Z90.49 Acquired absence of other specified parts of digestive tract; W20.8XXA Other cause of strike by thrown, projected or falling object, initial encounter; Y93.89 Activity, other specified; Y92.89 Other specified places as the place of occurrence of the external cause; Y99.8 Other external cause status
CPT/HCPCS: 73630; 99283

== ENCOUNTER → 2020-05-16 | Outpatient (CLI) | payer OTHER ==
--- NOTE | 2020-05-16 16:59 | RAD ---
BILATERAL SCREENING MAMMOGRAM, 3-D History: Routine screening. Comparison: 01/02/2016, 05/11/2019. Technique: MLO and CC digital tomosynthesis (3D) images obtained. Radiologist reviewed these images on dedicated workstation. Findings: Breast Tissue Density B : There are scattered areas of fibroglandular density. There are no dominant masses, suspicious microcalcifications, or architectural distortion. IMPRESSION: No mammographic evidence of malignancy. Recommend routine screening. BI-RADS category 1: Negative. The images were reviewed with computer-aided detection. Patient information is entered into reminder system with a target due date for the next screening mammogram. Mammography is the most sensitive method for finding small breast cancers, but it does not detect them all and is not a substitute for careful clinical examination. A negative mammogram does not negate a clinically suspicious finding and should not result in delay in biopsying a clinically suspicious abnormality. "Our facility is accredited by the [employer] Mammography Program." Electronically signed by: Hany Stern MD (05/16/2020 4:56 PM) [email or web address]
== END ==
LOC: MAMMO 15:21
PROVIDERS: ATTEND Family Medicine
DX: Z12.31 Encounter for screening mammogram for malignant neoplasm of breast (principal)
CPT/HCPCS: 77063; 77067

== ENCOUNTER → 2020-06-08 | Outpatient (CLI) | payer OTHER ==
[2020-06-08 09:11] LABS: BASO # 0.1 x10^3/uL (0.0-0.2); BASO % 1 % (0-3); EOS # 0.1 x10^3/uL (0.0-0.7); EOS % 2 % (0-3); HEMATOCRIT 38.6 % (36.0-47.0); HEMOGLOBIN 12.7 g/dL (12.0-15.5); LYMPH # 2.6 x10^3/uL (1.0-4.8); LYMPH % 37 % (24-48); MEAN CORPUSCULAR HEMOGLOBIN 27 pg (25-35); MEAN CORPUSCULAR HGB CONC 33 g/dL (31-37); MEAN CORPUSCULAR VOLUME 83 fL (79-100); MONO # 0.4 x10^3/uL (0.0-1.1); MONO % 6 % (0-9); NEUT # 3.9 x10^3/uL (1.8-7.7); NEUT % 55 % (31-73); PLATELET COUNT 273 x10^3/uL (140-400); RED BLOOD COUNT 4.64 x10^6/uL (3.50-5.40); RED CELL DISTRIBUTION WIDTH 13.2 % (11.5-14.5); WHITE BLOOD COUNT 7.2 x10^3/uL (4.0-11.0)
[2020-06-08 09:27] LABS: ALBUMIN 3.5 g/dL (3.4-5.0); ALBUMIN/GLOBULIN RATIO 0.8 (1.0-1.7); CREATININE 0.6 mg/dL (0.6-1.0); POTASSIUM 4.4 mmol/L (3.5-5.1); TOTAL BILIRUBIN 0.2 mg/dL (0.2-1.0); TOTAL PROTEIN 8.1 g/dL (6.4-8.2)
[2020-06-08 09:30] LABS: CHOLESTEROL/HDL RATIO 2.9
== END ==
LOC: LAB 08:27
PROVIDERS: ATTEND Family Medicine
DX: Z13.220 Encounter for screening for lipoid disorders (principal); R63.5 Abnormal weight gain; I10 Essential (primary) hypertension
CPT/HCPCS: 36415; 80053; 80061; 84443; 85025

== ENCOUNTER → 2021-06-27 | Outpatient (CLI) | payer OTHER ==
[~2021-06-27] MED LIST changes: +CYCL10TA19 PO; -CYCL10TA2 PO
--- NOTE | 2021-06-27 14:58 | RAD ---
Bilateral digital screening 2-D and 3-D (digital breast tomosynthesis) mammogram: Reason for examination: Routine screening. Comparison: Mammograms from 05/18/2020 and on 05/11/2019. Interpretation was made with the benefit of CAD. FINDINGS: Breast density: Category B. There are scattered areas of fibroglandular density. No suspicious breast mass, malignant appearing calcifications, or architectural distortion is seen. T here are multiple unchanged bilateral oval circumscribed masses. One left inner lower quadrant contai ns calcifications that are suggestive of a degenerated fibroadenoma. IMPRESSION: No evidence of malignancy. Assessment: BI-RADS 2. Benign findings. Recommendation: Routine screening mammograms. The patient will receive a letter with the results in the mail. Patient information will be entered i nto the mammography reminder system with a target recall date for the next mammogram. A reminder surinder er will be generated. Electronically signed by: Thania Brothers MD (06/27/2021 2:56 PM) [id number]
== END ==
LOC: MAMMO 08:55
PROVIDERS: ATTEND Family Medicine
DX: Z12.31 Encounter for screening mammogram for malignant neoplasm of breast (principal)
CPT/HCPCS: 77063; 77067

== ENCOUNTER 2021-10-10 14:21 | Emergency (ER) | payer OTHER ==
[~2021-10-10] VITALS: Ht 167.6 cm; Wt 136.3 kg
[2021-10-10 15:00] VITALS: BP 166/83
[2021-10-10] MEDS ORDERED: DIPHTH,PERTUSS(ACELL),TET TOX 0.5 ML DISP.SYRIN. VAX IM ONE (16:00)
--- NOTE | 2021-10-10 16:04 | PHYS DOC ---
Past Medical History Past Medical History: Depression, Hypertension Past Surgical History: No Surgical History Smoking Status: Never Smoker Alcohol Use: None Drug Use: None General Adult EDM: Chief Complaint: FINGER INJURY HPI: HPI: Patient is a 51-year-old female that presents today with right index finger n umbness and tingling. Patient states that Saturday while at work she grabbed onto a wall air conditioning unit at work, she felt a pinprick, she had some bleeding from her index finger she then she felt like a "shock". Patient states that she has numbness and tingling in her thumb, index finger, and middle finger on her right hand, she says it is transient it comes and goes, and no one activity makes it better or worse. Patient denies chest pain, shortness of breath, she states her urine is yellow in color and not orange, she has no muscle aches or myalgias at this time. Review of Systems: Review of Systems: Constitutional: Denies fever or chills. [] Eyes: Denies change in visual acuity. [] HENT: Denies nasal congestion or sore throat. [] Respiratory: Denies cough or shortness of breath. [] Cardiovascular: Denies chest pain or edema. [] GI: Denies abdominal pain, nausea, vomiting, bloody stools or diarrhea. [] : Denies dysuria. [] Musculoskeletal: Right index finger, thumb, middle finger numbness tingling Integument: Denies rash. [] Neurologic: Denies headache, focal weakness or sensory changes. [] Endocrine: Denies polyuria or polydipsia. [] Lymphatic: Denies swollen glands. [] Psychiatric: Denies depression or anxiety. [] Heart Score: C/O Chest Pain: No Risk Factors: Risk Factors: DM, Current or recent (<one month) smoker, HTN, HLP, family history of CAD, obesity. Risk Scores: Score 0 - 3: 2.5% MACE over next 6 weeks - Discharge Home Score 4 - 6: 20.3% MACE over next 6 weeks - Admit for Clinical Observation Score 7 - 10: 72.7% MACE over next 6 weeks - Early Invasive Strategies Allergies: Allergies: Allergies Coded Allergies Type Severity Reaction Last Updated Verified No Known Drug Allergies 10/10/21 No Physical Exam: PE: Constitutional: Well developed, well nourished, no acute distress, non-toxic appearance. [] HENT: Normocephalic, atraumatic, bilateral external ears normal, oropharynx moist, no oral exudates, nose normal. [] Eyes: PERRLA, EOMI, conjunctiva normal, no discharge. [] Neck: Normal range of motion, no tenderness, supple, no stridor. [] Cardiovascular:Heart rate regular rhythm, no murmur [] Lungs & Thorax: Bilateral breath sounds clear to auscultation [] Abdomen: Bowel sounds normal, soft, no tenderness, no masses, no pulsatile masses. [] Skin: Small abrasion noted to right index finger warm, dry, no erythema, no rash. [] Back: No tenderness, no CVA tenderness. [] Extremities: Right hand no numbness or tingling at this time, sensory is within normal limits and equal bilaterally, strength is normal bilaterally, radial pulses 2+ cap refill is less than 2 seconds bilaterally Neurologic: Alert and oriented X 3, normal motor function, normal sensory function, no focal deficits noted. [] Psychologic: Affect normal, judgement normal, mood normal. [] Current Patient Data: Vital Signs: Vital Signs Date Time Temp Pulse Resp B/P (MAP) Pulse Ox O2 Delivery O2 Flow Rate FiO2 10/10/21 15:00 98.7 97 14 166/83 (110) 100 98.7 EKG: EKG: [] Radiology/Procedures: Radiology/Procedures: [] Course & Med Decision Making: Course & Med Decision Making Pertinent Labs and Imaging studies reviewed. (See chart for details) [id number] with patient permission I did call plan ops here at [facility] to find out about the piece of equipment that was at [employer] where she works where her injury occurred, they state that there was a small piece of metal at the very top and the machine did not discharge an electrical shock. They state that there was a piece of metal on the top that did have blood on it which they indicate was the patient's. I did consult with Dr. Sood regarding this case, he is agreeable with reassurance of the patient and having her return if she has any other concerns. Did speak to patient at length regarding this information, she is agreeable with going home and following up with her primary care physician for further evaluation of the numbness and tingling in her first second and third finger on her right hand. Patient will be placed in a Velcro splint her tetanus will be updated at this time, and she is to follow-up with her primary care. Kathia Disclaimer: Kathia Disclaimer: This electronic medical record was generated, in whole or in part, using a voice recognition dictation system. Departure Departure Impression: Primary Impression: Abrasion of index finger Qualified Codes: S60.418A - Abrasion of other finger, initial encounter Disposition: HOME / SELF CARE / HOMELESS Condition: STABLE Referrals: AIDA GONZALEZ MD (PCP) Patient Instructions: Abrasions Additional Instructions: Watch for any signs and symptoms of infection of the right index finger Wear a Velcro splint as needed for comfort on the right wrist Follow-up with Dr. Snyder for further evaluation of the numbness and tingling in her hand. RANDY REVELES APRN Oct 10, 2021 16:04
== END 2021-10-10 16:23 | disposition home or self-care (01) ==
LOC: ER 14:21
DX: S60.418A Abrasion of other finger, initial encounter (principal); I10 Essential (primary) hypertension; X50.9XXA Other and unspecified overexertion or strenuous movements or postures, initial encounter; Y93.89 Activity, other specified; Y92.69 Other specified industrial and construction area as the place of occurrence of the external cause; Y99.0 Civilian activity done for income or pay
CPT/HCPCS: 99281